=== PATIENT | female | born 1950 | race Hispanic/Latino ===

== ENCOUNTER → 2024-01-02 10:18 | Outpatient (REF) | payer OTHER, SELFPAY ==
[2024-01-02 13:16] LABS: Glycohemoglobin (HgbA1c) 9.9 % (4.0-5.6)
== END ==
LOC: CLINIC 10:18
PROVIDERS: ATTENDING PHYSICIAN Internal Medicine
DX: E11.9 Type 2 diabetes mellitus without complications (principal)
CPT/HCPCS: 36415; 83036

== ENCOUNTER → 2024-12-11 10:08 | Outpatient (REF) | payer OTHER, SELFPAY ==
[2024-12-11 11:14] LABS: ALT (SGPT) 16 U/L (0-35); AST (SGOT) 19 U/L (14-36); Albumin 4.7 g/dl (3.5-5.0); Alkaline Phosphatase 47 U/L (38-126); Blood Urea Nitrogen 18 mg/dl (7-17); Calcium 9.9 mg/dl (8.4-10.2); Carbon Dioxide 31 mmol/L (22-30); Chloride 95 mmol/L (98-107); Glucose 156 mg/dl (70-99); HDL Cholesterol 56 mg/dl; LDL Cholesterol, Calculated 123 mg/dl; Sodium 137 mmol/L (135-145); Total Bilirubin 0.7 mg/dl (0.2-1.3); Total Cholesterol 210 mg/dl (50-199); Total Protein 7.6 g/dl (6.3-8.2); Triglyceride 157 mg/dl (10-149); Very Low Density Lipoprotein 31 mg/dl (0-30); eGFR > 60.00
[2024-12-11 12:01] LABS: Microalbumin, Random Urine 3.7 mg/dl (0.6-1.7); Microalbumin/creatinine Ratio 37.7 mg/g
[2024-12-11 12:23] LABS: Glycohemoglobin (HgbA1c) 8.7 % (4.0-5.6)
== END ==
LOC: REG 10:08
PROVIDERS: ATTENDING PHYSICIAN Internal Medicine
DX: E11.9 Type 2 diabetes mellitus without complications (principal)
CPT/HCPCS: 36415; 80053; 80061; 82043; 82570; 83036

== ENCOUNTER → 2025-03-18 11:04 | Outpatient (REF) | payer OTHER, SELFPAY ==
[2025-03-18 13:20] LABS: HDL Cholesterol 55 mg/dl; LDL Cholesterol, Calculated 85 mg/dl; Total Cholesterol 172 mg/dl (50-199); Triglyceride 164 mg/dl (10-149); Very Low Density Lipoprotein 32 mg/dl (0-30)
[2025-03-18 13:21] LABS: Glycohemoglobin (HgbA1c) 10.5 % (4.0-5.6)
[2025-03-18 15:15] LABS: Microalbumin, Random Urine 3.2 mg/dl (0.6-1.7)
== END ==
LOC: CLINIC 11:04
PROVIDERS: ATTENDING PHYSICIAN Internal Medicine
DX: E11.9 Type 2 diabetes mellitus without complications (principal)
CPT/HCPCS: 36415; 80061; 82043; 82570; 83036

== ENCOUNTER → 2025-06-22 09:40 | Outpatient (REF) | payer OTHER, SELFPAY ==
[2025-06-22 10:53] LABS: Glycohemoglobin (HgbA1c) 10.1 % (4.0-5.6)
== END ==
LOC: CLINIC 09:40
PROVIDERS: ATTENDING PHYSICIAN Internal Medicine
DX: E11.9 Type 2 diabetes mellitus without complications (principal)
CPT/HCPCS: 36415; 83036